=== PATIENT | female | born 1940 | race Caucasian/White ===

== ENCOUNTER 2017-03-15 14:57 | Emergency (ER) | payer MEDICARE ==
[2017-03-15 15:14] VITALS: BP 165/75
--- NOTE | 2017-03-15 17:19 | UC ---
Adam Holguin SooYoung, scribed for Oj Arcos MD on 03/15/17 at 1536 . Dizzy HPI HPI Summary: Pt is a 76 y/o F presenting to the [facility] [place] c/o confusion onset 0500. Associated sx: visual hallucinations; loss of coordination; weakness; diarrhea; mild pedal edema; intermittent MARTINI; cough; mild ear pain. Pt states she attempted to call her daughter but was unable to press the buttons on the phone, pt did reach her daughter at approx 1230. Pt also used her medical alert button at that time. At bedside, pt states visual hallucinations have resolved. Pt states she still "feels slow." Denies fever, CP, SOB, n/v, abd pain, urinary sx, rash. She states her extremity strength is at baseline. Pt also notes she had a fall recently, 1-2 weeks ago, where she hit her posterior head on her coffee table. Afterwards she experienced tinnitus which she states has resolved.. Pt had a similar episode of confusion early this week that mostly spontaneously resolved. She last saw her PCP for hives six days ago which was prior to the first episode of confusion. Pt had a known UTI on 02/24/17 and took her course of ABX. Denies DM, CHF, does not take a blood thinner. Pt took her daily meds today. - History Of Current Complaint Chief Complaint: UCDizziness Stated Complaint: CONFUSION Time Seen by Provider: 03/15/17 15:20 Hx Obtained From: Patient Onset/Duration: Sudden Onset, Lasting Hours - onset this AM at 0500, Still Present Severity Initially: Moderate Severity Currently: Mild Pain Intensity: 0 Pain Scale Used: 0-10 Numeric Associated Signs And Symptoms: Negative: Nausea, Vomiting, Chest Pain, SOB - Allergies/Home Medications Allergies/Adverse Reactions: Allergies Allergy/AdvReac Type Severity Reaction Status Date / Time Nitrofurantoin Allergy Hives Verified 03/15/17 16:24 PMH/Surg Hx/FS Hx/Imm Hx Previously Healthy: No - arthritis, fibromyalgia Endocrine History: Other Other Endocrine History: negative diabetes Cardiovascular History: Hypertension - Surgical History Surgical History: Yes Surgery Procedure, Year, and Place: [place] [facility] [facility] [place] [facility] [place] - Family History Known Family History: Positive: Diabetes Negative: Other - breast cancer - Social History Occupation: Retired Lives: Alone - senior housing Alcohol Use: None Substance Use Type: None Smoking Status (MU): Never Smoked Tobacco Review of Systems ENT: Ear Ache Respiratory: Cough Gastrointestinal: Diarrhea Musculoskeletal: Edema Neurological: Headache, Weakness, Other - confusion, visual hallucinations; loss of coordination All Other Systems Reviewed And Are Negative: Yes Physical Exam Triage Information Reviewed: Yes Appearance: Well-Appearing, No Pain Distress Vital Signs: Initial Vital Signs Temp 99.2 F 03/15/17 15:07 Pulse 59 03/15/17 15:07 Resp 17 03/15/17 15:07 BP 165/75 03/15/17 15:07 Pulse Ox 98 03/15/17 15:07 Vital Signs Reviewed: Yes Eyes: Positive: Other: - EOMI, JAMES ENT Exam: Other - cerumen in right ear Neck: Positive: Supple, Nontender Respiratory: Positive: Lungs clear, Normal breath sounds Cardiovascular: Positive: RRR, Other: - trace pedal edema bilaterally Abdomen Description: Positive: Nontender, Soft Bowel Sounds: Positive: Present Musculoskeletal: Positive: Strength Intact, ROM Intact, Edema @ - trace pedal edema bilaterally Neurological Exam: Other - confusion, not hallucinating Psychological: Positive: Normal Response To Family, Age Appropriate Behavior Skin Exam: Other - warm, skin color reflects adequate perfusion, dry Dizzy Course/Dx - Course Course Of Treatment: Pt is a 76 y/o F presenting to the [facility] [place] c/o confusion onset 0500. Associated sx: visual hallucinations; loss of coordination; weakness; diarrhea; mild pedal edema; intermittent MARTINI; cough; mild ear pain. Pt states she attempted to call her daughter but was unable to press the buttons on the phone, pt did reach her daughter at approx 1230. Pt also used her medical alert button at that time. At bedside, pt states visual hallucinations have resolved. Pt states she still "feels slow." Denies fever, CP, SOB, n/v, abd pain, urinary sx, rash. She states her extremity strength is at baseline. Pt also notes she had a fall recently, 1-2 weeks ago, where she hit her posterior head on her coffee table. Afterwards she experienced tinnitus which she states has resolved.. Pt had a similar episode of confusion early this week that mostly spontaneously resolved. She last saw her PCP for hives six days ago which was prior to the first episode of confusion. Pt had a known UTI on 02/24/17 and took her course of ABX. Denies DM, CHF, does not take a blood thinner. Pt took her daily meds today. Elevated BP but has current hypertension diagnosis. Medications reviewed. DISCUSSED WITH THE PATIENT TO GO TO THE EMERGENCY DEPARTMENT FOR FURTHER EVALUATION AND CARE. PATIENT AND DAUGHTER AGREE. DISCUSSED WITH DR DUVAL IN THE ED. - Differential Dx/Diagnosis Provider Diagnoses: 1. Blood pressure in poor control. CONFUSION. HALLUCINATIONS. ALTERED MENTAL STATE Discharge - Discharge Plan Condition: Stable Disposition: OTHER Discharge Disposition Comment: TO EMERGENCY DEPARTMENT Patient Education Materials: Altered Mental Status (ED) Referrals: Domenic Kelley MD [Primary Care Provider] - Additional Instructions: GO DIRECTLY TO THE EMERGENCY DEPARTMENT FOR FURTHER EVALUATION AND CARE FOR YOUR CONFUSION. The documentation as recorded by the Adam shi SooYoung accurately reflects the service I personally performed and the decisions made by me, Oj Arcos MD.
== END 2017-03-15 16:03 ==
LOC: UCEAST 14:57
DX: I10 Essential (primary) hypertension (principal); R41.0 Disorientation, unspecified; R44.3 Hallucinations, unspecified; R41.82 Altered mental status, unspecified
CPT/HCPCS: 81003; 87086; 99212; G0463

== ENCOUNTER 2017-03-15 16:21 | Inpatient (IN) | payer MEDICARE ==
--- NOTE | 2017-03-15 18:17 | RAD ---
INDICATION: Altered mental status. COMPARISON: There are no prior studies available for comparison. TECHNIQUE: Contiguous axial sections of the brain were obtained from the skull base to the vertex without contrast. FINDINGS: The ventricles, cisterns and sulci are enlarged consistent with age-related atrophy. There are small areas of decreased density in the subcortical and periventricular white matter suggestive of mild chronic small vessel ischemic changes. No other focal abnormality or mass effect is seen. There is no evidence for hemorrhage. No significant focal osseous abnormality is seen. The visualized portion of the paranasal sinuses and mastoid air cells appear clear. IMPRESSION: NO EVIDENCE FOR ACUTE INTRACRANIAL ABNORMALITY.
--- NOTE | 2017-03-15 18:20 | RAD ---
INDICATION: Altered mental status. COMPARISON: Comparison is made with a prior chest x-ray study from January 18, 2008. TECHNIQUE: A portable view of the chest was obtained. FINDINGS: Cardiac and mediastinal contours appear to be within normal limits. The lungs are underinflated. There is a small infiltrate at the right lung base. No pleural effusion is seen. IMPRESSION: LOW LUNG VOLUMES, SMALL RIGHT BASILAR INFILTRATE.
[2017-03-15 18:31] LABS: Urine Bacteria Absent (Absent); Urine Bilirubin Negative (Negative); Urine Glucose Negative (Negative); Urine Nitrite Negative (Negative)
[2017-03-15 19:06] LABS: Hematocrit 38 % (35-47); Hemoglobin 12.7 g/dl (12.0-16.0); Mean Corpuscular HGB Conc 34 g/dl (31-36); Mean Corpuscular Hemoglobin 29 pg (27-31); Mean Corpuscular Volume 86 fL (80-97); Mean Platelet Volume 8 um3 (7.4-10.4); Red Blood Count 4.39 10^6/ul (4.0-5.4); Red Cell Distribution Width 15 % (10.5-15)
[2017-03-15 19:12] LABS: Add Diff/Slide Review? Slide Review Added; Comments Flag Yes
[2017-03-15 19:16] LABS: Acetaminophen < 15 mcg/mL
[2017-03-15 19:18] LABS: ALT 35 U/L (7-52); Albumin 3.4 g/dL (3.2-5.2); Alkaline Phosphatase 105 U/L (34-104); BUN/Creatinine Ratio 12.9 (8-20); Blood Urea Nitrogen 11 mg/dL (6-24); CO2 Carbon Dioxide 29 mmol/L (22-32); Chloride 102 mmol/L (101-111); EGFR African American 83.6 (>60); Glucose 98 mg/dL (70-100); Magnesium 2.1 mg/dL (1.9-2.7); Sodium 139 mmol/L (133-145); Total Protein 6.4 g/dL (6.4-8.9); Troponin I 0.03 ng/mL (<0.04)
[2017-03-15 19:19] LABS: Anion Gap 8 mmol/L (2-11)
[2017-03-15] MEDS ORDERED: cefTRIAXone(*) 1 GM in NS 0.9% 50 ML* 50 ML IVPB ONE (19:30)
[2017-03-15 19:31] LABS: TSH (Thyroid Stimulating Horm) 3.65 mcIU/mL (0.34-5.60)
[2017-03-15] MEDS ORDERED: Azithromycin IV(*) 500 MG in NS 0.9% 250 ML* 250 ML IVPB ONE (19:31)
[2017-03-15] MEDS ORDERED: Acetaminophen TAB* 325 MG PO PRN (20:35)
[2017-03-15] MEDS ORDERED: Melatonin (NF) 3 MG TAB PO PRN (20:36)
[2017-03-15] MEDS ORDERED: hydrALAZINE IV* 20 MG/ML VIAL IV PRN (20:37)
[2017-03-15] MEDS ORDERED: Ondansetron INJ* 2 MG/ML VIAL IV PRN (20:37)
[2017-03-15] MEDS ORDERED: NS 0.9% 1000 ML* 1,000 ML IV SCH ×2 (20:45→22:00)
[2017-03-15] MEDS ORDERED: predniSONE TAB* 10 MG PO ONE (20:51)
[2017-03-15 21:27] LABS: C Reactive Protein 15.81 mg/L (< 5.00)
[2017-03-15 23:17] LABS: EGFR African American 80.3 (>60); EGFR Non-African American 62.5 (>60)
[2017-03-15] MEDS: Ropinirole TAB* 0.5 MG TAB PO PRN (23:23)
[2017-03-15] MEDS: Docusate CAP* 100 MG PO SCH (23:23)
[2017-03-15] MEDS: guaiFENesin ER TAB 600 MG PO SCH ×2 (23:23→23:29)
--- NOTE | 2017-03-15 23:39 | HP ---
CC: Dr. Kelley * HISTORY AND PHYSICAL: DATE OF ADMISSION: 03/15/17 PRIMARY CARE PROVIDER: Dr. Kelley. ATTENDING PHYSICIAN: Roge Felipe MD * (dictation provided by Rylie Pedro NP) CHIEF COMPLAINT: Confusion. HISTORY OF PRESENT ILLNESS: Ms. Ward is a 76-year-old female with a past medical history of hypothyroidism, hypertension, restless legs, and fibromyalgia who presents today to the hospital after two of episodes of confusion over the past week. Ms. Ward reports recent treatment for a UTI with nitrofurantoin. Early last week she developed hives which she thought were secondary to this medication. She was seen at her primary care physician' s office and this medication was discontinued. The following day, Thursday, , she called to tell her daughter that she had a fever. At that time, she had some confusion and was seeing things that were not there in her home including a mouse and pillows moving around on the couch. On Thursday, she called her doctor's office about the confusion and she was instructed to evaluated should this happen again. , the day of , she felt okay, but did not feel well enough to leave the home. On Thursday, she began taking cream for some hives that she had developed earlier in the week. Thursday she was feeling about the same and then this morning she suddenly felt worse and again very confused. He daughter camed to check on her and she was hallucinating and felt very weak. She continued to have a feeling of ringing in the ear. Her daughter and then was taken to convenient care where she was evaluated and then sent to the emergency department. In the emergency room, Ms. Ward had labs which showed no leukocytosis. Her CRP is 15.81. She has a mild hypokalemia with a potassium of 2.9. She is quite hypertensive. The first check here reads 244/79 and I am suspicious this is incorrect, though her blood pressure has been running repeatedly in 170s to 200s. She is asymptomatic here now and has had no confusion, but some short- term memory loss. Chest x-ray shows concern for a small right lower lobe infiltrate. PAST MEDICAL HISTORY: 1. Hypothyroidism. 2. Hypertension. 3. Restless leg syndrome. 4. Fibromyalgia. 5. Osteoarthritis. 6. Neuropathy of toes and fingers. 7. Cholecystectomy. MEDICATIONS: 1. Duloxetine 60 mg p.o. in the a.m. and 30 mg at noon. 2. Levothyroxine 88 mcg p.o. daily. 3. Propranolol 40 mg p.o. b.i.d. 4. Ropinirole 0.5 mg p.o. q.4 hours p.r.n. 5. Triamterene/hydrochlorothiazide 37.5/25 one cap p.o. daily. ALLERGIES: NITROFURANTOIN. FAMILY HISTORY: The patient reports her mother , had rheumatoid arthritis. Her dad , had lung cancer. SOCIAL HISTORY: The patient quit smoking, the patient was a smoker very briefly when she was in her 20s. She denies any alcohol or drug use. She states that her 3 children would be the healthcare proxy, but the primary person at the bedside alessandroight is Rocío. REVIEW OF SYSTEMS: Constitutional: Positive for fevers this week. No anorexia. Cardiac: No chest pain. No edema. Respiratory: Positive for chronic cough, unchanged. No hemoptysis, no shortness of breath. GI: No nausea, vomiting, diarrhea, or abdominal pain. : No gross hematuria or dysuria. Neuro: No focal weakness or sensory loss, but positive for confusion and generalized weakness. Eyes: No visual complaints. ENT: No dysphagia. Positive for some ringing in the ear, not resolved at this point. Musculoskeletal: No arthralgias or myalgias. Positive for some osteoarthritis. Skin: No rashes or lesions. Psych: No depression or anxiety. PHYSICAL EXAMINATION GENERAL: Ms. Ward is sitting in the bed with her daughter Antonella at the bedside. She is in no acute distress. VITAL SIGNS: Blood pressure 178/63, heart rate 54, O2 saturation 97% on room air, respiratory rate 17, and temperature 97.9. LUNGS: Clear to auscultation bilaterally with no accessory muscle use. They seem diminished in the bases. This is perhaps due to body habitus. HEART: S1 and S2. No murmur, rub, or gallop and regular. EXTREMITIES: No cyanosis and no edema. SKIN: Intact. NEUROLOGIC: She is alert, she is oriented x3. She is confused about some details over the past week and is corrected by her daughter. She moves all extremities equally. There is no facial asymmetry or focal weakness. Extraocular movements are intact. [id number] is intact. She has some difficulty with pain in her hips and legs and therefore, [id number] was not assessed. Her rapid alternating movements are intact. LABORATORY DATA: WBC 139, potassium 2.9, chloride 102, serum bicarbonate 29, BUN 11, creatinine 0.85, glucose 98, lactic acid 1.3. Troponin 0.03. CRP 15.81 , TSH 3.65. WBC 10.0, hemoglobin 12.7, hematocrit 38, platelet count 194,000. Tox screen shows negative acetaminophen. She has trace leukocyte esterase in her urine only. Chest x-ray shows concern for right lower lobe infiltrate. CT brain shows no evidence for acute intracranial abnormality. EKG shows sinus bradycardia with heart rate in the 50s and no evidence of ischemia. ASSESSMENT/PLAN: Ms. Ward is a 76-year-old female with the past medical history of hypertension, hypothyroidism, restless legs, and fibromyalgia who presents today to the hospital with a couple of episodes of confusion over the past week associated with intermittent fever and generally feeling unwell. She presented for observation in the hospital for the followin. Confusion: It is not quite clear what is driving the patient's intermittent confusion. She is afebrile here today. She does have a concern for a right lower lobe infiltrate, but she does not have any other clear evidence of pneumonia. Given the infiltrate on exam and confusion with reported fever at home, plan to treat for pneumonia. Lactic acid has been drawn. Blood cultures have been sent. Plan for gentle IV fluids overnight. She is not meeting sepsis criteria and I do not think she needs any aggressive IV fluids, especially in the setting of her elevated blood pressure. 2. Hypertension. It could be that she is having hypertensive encephalopathy at home which is driving her episodes of confusion. However, the patient states that she takes her blood pressure at home frequently and has not noted it to be elevated as it has been here today in the emergency room. Plan to continue her home medications. Her blood pressure is in the 170s systolically now. She will have hydralazine available p.r.n. and we can add on additional antihypertensive as needed based on the clinical course. 3. Restless legs. Continue Requip. 4. Fibromyalgia. Continue Cymbalta. 5. Hypothyroidism. Continue levothyroxine. Her TSH is appropriate. 6. Code status is full code. This was reviewed with the patient and her daughter at the bedside. 7. Approximately 60 minutes were spent on the admission of this patient, more than half the time was spent with the patient at the bedside reviewing the events leading up to this hospitalization, performing the physical examination, and reviewing my plan of care. RYLIE PEDRO NP [id number]/CPS #: [id number] ROBYN
[2017-03-16] MEDS: Levothyroxine TAB* 88 MCG TAB PO SCH (05:18)
[2017-03-16] MEDS: Ropinirole TAB* 0.5 MG TAB PO PRN ×3 (05:19→20:39)
[2017-03-16] MEDS: Heparin VIAL(*) 5000 UNITS/ML VIAL (FIVE THOUSAND) SUBCUT SCH ×3 (05:20→21:24)
[2017-03-16] MEDS: Omeprazole CAP* 20 MG PO SCH (05:23)
[2017-03-16 06:00] LABS: Hematocrit 37 % (35-47); Hemoglobin 12.2 g/dl (12.0-16.0); Mean Corpuscular HGB Conc 33 g/dl (31-36); Mean Corpuscular Hemoglobin 29 pg (27-31); Mean Corpuscular Volume 86 fL (80-97); Mean Platelet Volume 7 um3 (7.4-10.4); Red Blood Count 4.26 10^6/ul (4.0-5.4); Red Cell Distribution Width 15 % (10.5-15); White Blood Count 7.6 10^3/ul (3.5-10.8)
[2017-03-16 06:04] LABS: Add Diff/Slide Review? Slide Review Added; Comments Flag Yes
[2017-03-16 06:20] LABS: BUN/Creatinine Ratio 11.8 (8-20); EGFR African American 83.6 (>60); Potassium 3.1 mmol/L (3.5-5.0)
[2017-03-16] MEDS: Potassium Chloride LIQUID* 20 MEQ PACKET PO SCH (08:23)
[2017-03-16] MEDS: Triamterene/HCTZ 37.5-25 MG* CAP PO SCH (08:24)
[2017-03-16] MEDS: DULoxetine DR CAP* 30 MG CAP.DR PO SCH ×2 (08:24→12:22)
[2017-03-16] MEDS: guaiFENesin ER TAB 600 MG PO SCH (08:25)
[2017-03-16] MEDS: Propranolol TAB* 40 MG PO SCH ×2 (08:25→20:34)
[2017-03-16] MEDS: Docusate CAP* 100 MG PO SCH ×2 (08:25→20:38)
[2017-03-16] MEDS: Lisinopril TAB* 5 MG PO SCH (16:32)
--- NOTE | 2017-03-16 16:49 | PN ---
Subjective Date of Service: 03/16/17 Interval History: Patient states that she is feeling better with regards to her fever and hallucinations. Patient denies CP, SOB, N/V, Abdominal Pain, Diarrhea, Constipation, or other complaint. Patient complains of generalized leg pain which is similar to her pain with fibromyalgia and RLS. Patient states it usually resolves with requip. Patient states that she is SOB when walking to the bathroom, but that this is her baseline. Family History: Unchanged from Admission Social History: Unchanged from Admission Past Medical History: Unchanged from Admission Objective Active Medications: Acetaminophen (Tylenol Tab*) 650 mg PO Q6H PRN PRN Reason: FEVER/PAIN Docusate Sodium (Colace Cap*) 200 mg PO BID [facility] Last Admin: 03/16/17 08:25 Dose: 200 mg Duloxetine HCl (Cymbalta Cap*) 60 mg PO DAILY [facility] Last Admin: 03/16/17 08:24 Dose: 60 mg Duloxetine HCl (Cymbalta Cap*) 30 mg PO 1200 [facility] Last Admin: 03/16/17 12:22 Dose: 30 mg Guaifenesin (Mucinex*) 1,200 mg PO BID [facility] Last Admin: 03/16/17 08:25 Dose: Not Given Heparin Sodium (Porcine) (Heparin Vial(*)) 5,000 units SUBCUT Q8HR [facility] Last Admin: 03/16/17 14:37 Dose: 5,000 units Hydralazine HCl (Apresoline Iv*) 10 mg IV Q4H PRN PRN Reason: Systolic >170 Ceftriaxone Sodium 1,000 mg/ (Sodium Chloride) 50 mls @ 200 mls/hr IVPB Q24H [facility] Azithromycin 250 mg/ Sodium (Chloride) 250 mls @ 250 mls/hr IVPB Q24H [facility] Levothyroxine Sodium (Synthroid Tab*) 88 mcg PO 0600 [facility] Last Admin: 03/16/17 05:18 Dose: 88 mcg Lisinopril (Prinivil Tab*) 5 mg PO DAILY [facility] Last Admin: 03/16/17 16:32 Dose: 5 mg Melatonin (Melatonin (Nf)) 3 mg PO BEDTIME PRN; Protocol PRN Reason: Sleep Omeprazole (Prilosec Cap*) 20 mg PO DAILY@0600 [facility] Last Admin: 03/16/17 05:23 Dose: Not Given Ondansetron HCl (Zofran Inj*) 4 mg IV Q6H PRN PRN Reason: NAUSEA Potassium Chloride (Klor-Con Liquid*) 40 meq PO DAILY [facility] Last Admin: 03/16/17 08:23 Dose: 40 meq Propranolol HCl (Inderal Tab*) 40 mg PO BID [facility] Last Admin: 03/16/17 08:25 Dose: 40 mg Ropinirole HCl (Requip Tab*) 0.5 mg PO Q4H PRN PRN Reason: restless legs Last Admin: 03/16/17 08:24 Dose: 0.5 mg Triamterene/HCTZ (Dyazide Cap*) 1 cap PO DAILY [facility] Last Admin: 03/16/17 08:24 Dose: 1 cap Vital Signs 03/15/17 03/15/17 03/16/17 21:00 22:34 00:22 Temperature 99.2 F 97.8 F Pulse Rate 54 61 58 Respiratory 17 17 22 Rate Blood Pressure 178/63 175/59 158/55 (mmHg) O2 Sat by Pulse 97 97 99 Oximetry 03/16/17 03/16/17 03/16/17 00:27 03:50 07:27 Temperature 97.6 F 98.9 F Pulse Rate 63 60 Respiratory 22 18 16 Rate Blood Pressure 155/78 157/75 (mmHg) O2 Sat by Pulse 96 97 Oximetry 03/16/17 03/16/17 03/16/17 08:31 11:15 15:41 Temperature 97.8 F 98.3 F Pulse Rate 60 59 Respiratory 20 16 16 Rate Blood Pressure 170/62 164/71 (mmHg) O2 Sat by Pulse 98 97 Oximetry Oxygen Devices in Use Now: None Appearance: Patient is a 76yo female who appears stated age and is sitting in the bed in mild distress from the pain in her legs. Eyes: No Scleral Icterus, PERRLA Ears/Nose/Mouth/Throat: NL Teeth, Lips, Gums, Clear Oropharnyx, Mucous Membranes Moist Neck: NL Appearance and Movements; NL JVP, Trachea Midline Respiratory: Symmetrical Chest Expansion and Respiratory Effort, - - Slight crackles in B/L Lower Lobes. Cardiovascular: NL Sounds; No Murmurs; No JVD, RRR, No Edema Abdominal: NL Sounds; No Tenderness; No Distention, No Hepatosplenomegaly Lymphatic: No Cervical Adenopathy Extremities: No Edema, No Clubbing, Cyanosis, - - Pain with slight palpation over the left song. Skin: No Rash or Ulcers Neurological: Alert and Oriented x 3 Result Diagrams: 03/16/17 05:28 03/16/17 05:28 Microbiology and Other Data: Microbiology 03/15/17 22:30 Influenza Types A,B Antigen (LORIE) - Final Nasopharyngeal Specimen received for Influenza A/B Molecular testing Assess/Plan/Problems-Billing Assessment: Patient is a 76yo female with a PMH significant for HTN who presents with possible CAP and Hypertensive encephalopathy. Patient is improving on IV antibiotics and when in the normotensive range. - Patient Problems (1) CAP (community acquired pneumonia) Current Visit: Yes Status: Acute Code(s): J18.9 - PNEUMONIA, UNSPECIFIED ORGANISM SNOMED Code(s): 294449574 Comment: Presumptive community acquired pneumonia due to subjective fevers and infiltrate on CXR. Baseline SOB with walking at this point. Continue Ceftriaxone and Azithromycin Discontinue Mucinex per patient. (2) Hypertensive encephalopathy Current Visit: Yes Status: Acute Code(s): I67.4 - HYPERTENSIVE ENCEPHALOPATHY SNOMED Code(s): 55420455 Comment: Blood Pressure Markedly elevated when arrived in ED. Possible false reading but BP still significantly elevated throughout day. Hallucinations resolved with decrease in BP. Will begin Lisinopril Continue Inderal and Dyazide. Continue to monitor overnight. (3) Hypokalemia Current Visit: Yes Status: Acute Code(s): E87.6 - HYPOKALEMIA SNOMED Code( s): 75831611 Comment: Increased with supplementation, 3.1 most recently. Continue supplementation and recheck in AM. (4) RLS (restless legs syndrome) Current Visit: Yes Status: Acute Comment: Currently symptomatic, continue requip at home dose. (5) Fibromyalgia Current Visit: Yes Status: Acute Code(s): M79.7 - FIBROMYALGIA SNOMED Code (s): 070351633 Comment: Continue Cymbalta (6) Hypothyroidism Current Visit: Yes Status: Acute Code(s): E03.9 - HYPOTHYROIDISM, UNSPECIFIED SNOMED Code(s): 98279215 Comment: Continue Lexothyroxine. (7) Full code status Current Visit: Yes Status: Acute Code(s): Z78.9 - OTHER SPECIFIED HEALTH STATUS SNOMED Code(s): 955051940 (8) DVT prophylaxis Current Visit: Yes Status: Acute Code(s): UAB8853 - SNOMED Code(s): 039477368 Comment: Heparin SubQ Status and Disposition: Patient is admitted inpatient estimated LOS 1 more day.
[2017-03-16] MEDS ORDERED: cefTRIAXone VIAL(*) 1,000 MG in NS 0.9% 50 ML* 50 ML IVPB SCH (20:00)
[2017-03-16] MEDS ORDERED: Azithromycin IV(*) 250 MG in NS 0.9% 250 ML* 250 ML IVPB SCH (20:00)
[2017-03-16] MEDS ORDERED: Azithromycin IV(*) 500 MG in NS 0.9% 250 ML* 250 ML IVPB SCH (21:00)
[2017-03-17] MEDS: Omeprazole CAP* 20 MG PO SCH (05:13)
[2017-03-17] MEDS: Levothyroxine TAB* 88 MCG TAB PO SCH (05:13)
[2017-03-17] MEDS: Heparin VIAL(*) 5000 UNITS/ML VIAL (FIVE THOUSAND) SUBCUT SCH ×2 (05:14→14:39)
[2017-03-17 05:41] LABS: Hematocrit 36 % (35-47); Mean Corpuscular HGB Conc 33 g/dl (31-36); Mean Corpuscular Hemoglobin 29 pg (27-31); Mean Corpuscular Volume 87 fL (80-97); Mean Platelet Volume 8 um3 (7.4-10.4); Red Cell Distribution Width 15 % (10.5-15); White Blood Count 11.3 10^3/ul (3.5-10.8)
[2017-03-17 05:55] LABS: Add Diff/Slide Review? Slide Review Added; Comments Flag Yes
[2017-03-17 06:07] LABS: BUN/Creatinine Ratio 10.6 (8-20); Calcium 8.7 mg/dL (8.6-10.3); EGFR African American 83.6 (>60); Magnesium 2.1 mg/dL (1.9-2.7); Potassium 3.1 mmol/L (3.5-5.0)
[2017-03-17] MEDS: Potassium Chlor TAB* 20 MEQ TAB.ER PO SCH ×2 (09:43→11:46)
[2017-03-17] MEDS: Docusate CAP* 100 MG PO SCH (09:43)
[2017-03-17] MEDS: DULoxetine DR CAP* 30 MG CAP.DR PO SCH ×2 (09:44→11:46)
[2017-03-17] MEDS: Lisinopril TAB* 5 MG PO SCH (09:44)
[2017-03-17] MEDS: Triamterene/HCTZ 37.5-25 MG* CAP PO SCH (09:44)
[2017-03-17] MEDS: Propranolol TAB* 40 MG PO SCH (09:44)
[2017-03-17] MEDS: Potassium Chloride LIQUID* 20 MEQ PACKET PO SCH (09:45)
[2017-03-17] MEDS: Ropinirole TAB* 0.5 MG TAB PO PRN (10:28)
[2017-03-17 11:32] VITALS: BP 179/71
--- NOTE | 2017-03-17 14:11 | DCNOTE ---
Subjective Date of Service: 03/17/17 Interval History: Patient seen and examined at bedside. Patient reports confusion has resolved. BP up to 170s this PM but patient states she is anxious. Denies SOB that is new. States she's always short of breath. Family History: Unchanged from Admission Social History: Unchanged from Admission Past Medical History: Unchanged from Admission Objective Active Medications: Acetaminophen (Tylenol Tab*) 650 mg PO Q6H PRN Docusate Sodium (Colace Cap*) 200 mg PO BID [facility] Duloxetine HCl (Cymbalta Cap*) 60 mg PO DAILY [facility] Duloxetine HCl (Cymbalta Cap*) 30 mg PO 1200 [facility] Heparin Sodium (Porcine) (Heparin Vial(*)) 5,000 units SUBCUT Q8HR [facility] Hydralazine HCl (Apresoline Iv*) 10 mg IV Q4H PRN Ceftriaxone Sodium 1,000 mg/ (Sodium Chloride) 50 mls @ 200 mls/hr IVPB Q24H [facility] Azithromycin 250 mg/ Sodium (Chloride) 250 mls @ 250 mls/hr IVPB Q24H [facility] Levothyroxine Sodium (Synthroid Tab*) 88 mcg PO 0600 [facility] Lisinopril (Prinivil Tab*) 5 mg PO DAILY [facility] Melatonin (Melatonin (Nf)) 3 mg PO BEDTIME PRN; Protocol Omeprazole (Prilosec Cap*) 20 mg PO DAILY@0600 [facility] Ondansetron HCl (Zofran Inj*) 4 mg IV Q6H PRN Potassium Chloride (Klor-Con Liquid*) 40 meq PO DAILY [facility] Propranolol HCl (Inderal Tab*) 40 mg PO BID [facility] Ropinirole HCl (Requip Tab*) 0.5 mg PO Q4H PRN Triamterene/HCTZ (Dyazide Cap*) 1 cap PO DAILY [facility] Vital Signs Temp Pulse Resp BP Pulse Ox 99.2 F 56 16 179/71 99 03/17/17 12:05 03/17/17 12:05 03/17/17 12:05 03/17/17 12:05 03/17/17 12:05 Oxygen Devices in Use Now: None Appearance: sitting up in bed, NAD Eyes: No Scleral Icterus, PERRLA Ears/Nose/Mouth/Throat: NL Teeth, Lips, Gums Neck: NL Appearance and Movements; NL JVP Respiratory: Symmetrical Chest Expansion and Respiratory Effort, Clear to Auscultation Cardiovascular: NL Sounds; No Murmurs; No JVD, RRR Abdominal: NL Sounds; No Tenderness; No Distention Extremities: No Edema Skin: No Rash or Ulcers Neurological: Alert and Oriented x 3, NL Muscle Strength and Tone Lines/Tubes/Other Access: Clean, Dry and Intact Peripheral IV Nutrition: Taking PO's Result Diagrams: 03/17/17 04:22 03/17/17 04:22 Microbiology and Other Data: . Assess/Plan/Problems-Billing Patient is a 76yo female with a PMH significant for HTN who presents with possible CAP and Hypertensive encephalopathy. Patient is improving on IV antibiotics and when in the normotensive range. - Patient Problems (1) Hypertensive encephalopathy (2) CAP (community acquired pneumonia) (3) Hypokalemia (4) Hypothyroidism (5) RLS (restless legs syndrome) (6) Fibromyalgia (7) DVT prophylaxis (8) Full code status Status and Disposition: Patient stable to be discharged home. Please see full dictated discharge summary for detail regarding plan of care for above diagnoses.
--- NOTE | 2017-03-18 04:20 | DS ---
CC: Dr. Kelley * DISCHARGE SUMMARY: DATE OF ADMISSION: 03/15/17 DATE OF DISCHARGE: 03/17/17 ATTENDING PHYSICIAN: Irving Brown MD* (DICTATED BY DINO AVILA NP) PRIMARY CARE PROVIDER: Dr. Kelley. PRIMARY DIAGNOSES: 1. Hypertensive encephalopathy with confusion. 2. Community-acquired pneumonia. SECONDARY DIAGNOSES: 1. Fibromyalgia. 2. Restless leg syndrome. 3. Hypothyroidism. 4. Neuropathy. STUDIES WHILE IN THE HOSPITAL: Chest x-ray, 03/15/17: Low lung volume, small right basilar infiltrate. MEDICATIONS AT THE TIME OF DISCHARGE: New medications: 1. Zithromax 250 mg oral daily for 6 days. 2. Vantin 200 mg oral every 12 hours for 5 days. 3. Lisinopril 5 mg oral daily. 4. The patient is instructed to resume potassium 20 mEq oral twice daily. The following medications are medications the patient came in on: 1. Propranolol 40 mg oral twice daily. 2. Requip 0.5 mg oral every 4 hours as needed. 3. Cymbalta 60 mg oral daily. 4. Synthroid 88 mcg oral daily. 5. Dyazide 37.5/25 one capsule oral daily. 6. Cymbalta 30 mg oral at noon. HISTORY OF PRESENT ILLNESS AND HOSPITAL COURSE: Ms. Ward is a 76-year-old female with past medical history significant for hypothyroidism, hypertension, restless legs, and fibromyalgia, who presented to the emergency room on after 2 episodes of confusion in the past week. The patient recently had been treated with Macrobid for UTI and developed hives. Subsequently, she developed a fever. She was having confusion and hallucinations and was brought to the emergency room for further evaluation. In the emergency room, the patient did not have a leukocytosis, but had a blood pressure 244/79. Chest x- ray also was concerning for small right lower lobe infiltrate. The patient was admitted to the medical floor and placed on antibiotics for the pneumonia. It was felt that most likely her confusion was secondary to hypertensive encephalopathy. Blood pressure was monitored and given hydralazine as needed. Subsequently, the patient's blood pressure remained high and lisinopril was added to her preexisting medication regimen, which consisted of Dyazide and propranolol. With the addition of lisinopril, the patient's blood pressure was better controlled, although the patient does suffer from anxiety and I suspect the anxiety is playing into her elevated blood pressure. Rather than further increasing her lisinopril, I instructed the patient to keep a careful log of her blood pressure and followup with her primary care provider who, at that point, can decide whether or not her lisinopril needed to be increased. Upon presentation and during her hospitalization, the patient was hypokalemic. The patient states she had been on potassium supplements, which were stopped when she took the Macrobid. I have instructed the patient to restart the potassium supplementation. For her restless legs, Requip was continued and Cymbalta was continued for fibromyalgia. Synthroid was continued for hypothyroidism and TSH was within normal limits. On 03/17/17, vitals were as follows: Temperature 99.2, heart rate 56, respiratory rate 18, blood pressure 145/57, oxygen saturation 99% on room air. At this point, the patient was stable for discharge. DISCHARGE PLAN: The patient is discharged on a low sodium diet. The patient has been instructed to follow up with her primary care provider, Dr. Kelley, within 4 to 7 days. The patient has been instructed to take her blood pressure daily and notify her primary care provider if the systolic blood pressure is consistently greater than 160. In addition, the patient should return to the hospital if she experiences any worsening confusion or high fevers. I have reviewed all the instructions with the patient, she is agreeable with her discharge today and the plan. This is a summarized report of a complex medical history and hospital stay. For more details, please see the entire medical record. TIME SPENT: Time for this discharge was 50 minutes, and 25 minutes were spent with the patient discussing medications at discharge and followup instructions. CONDITION ON DISCHARGE: Stable. DINO AVILA NP [id number]/[facility] #: [id number] ROBYN
== END 2017-03-17 15:30 | disposition home or self-care (01) | DRG 77 ==
LOC: ED 16:21 → SSU 20:31
PROVIDERS: ADMIT Internal Medicine; ATTEND Internal Medicine
DX: I67.4 Hypertensive encephalopathy (principal); J18.8 Other pneumonia, unspecified organism; R41.0 Disorientation, unspecified; M79.7 Fibromyalgia; G25.81 Restless legs syndrome; E03.8 Other specified hypothyroidism; G62.9 Polyneuropathy, unspecified; F41.9 Anxiety disorder, unspecified; E87.6 Hypokalemia; M19.90 Unspecified osteoarthritis, unspecified site; Z79.899 Other long term (current) drug therapy; Z91.09 Other allergy status, other than to drugs and biological substances; Z82.61 Family history of arthritis; Z80.1 Family history of malignant neoplasm of trachea, bronchus and lung; Z87.891 Personal history of nicotine dependence
CPT/HCPCS: 36415; 70450; 71010; 80048; 80053; 80329; 81003; 81015; 82140; 82565; 83605; 83735; 84443; 84484; 84520; 85025; 85610; 85730; 86140; 87086; 87502; 87899; 93005; 94760; 99212; A9270-GY; G0463; G0480; J0360; J0456; J0696; J1644; J7512

== ENCOUNTER 2017-05-29 10:40 | Emergency (ER) | payer MEDICARE ==
--- NOTE | 2017-05-29 12:42 | RAD ---
INDICATION: Dizziness and low blood pressure COMPARISON: CT the brain March 15, 2017 TECHNIQUE: Contiguous axial sections of the brain were obtained from the skull base to the vertex without contrast. FINDINGS: The ventricles, cisterns and sulci are within normal limits. The chu-white matter differentiation is adequately maintained and there is no sulcal effacement. No significant focal abnormality or mass effect is present. There is no evidence for intracranial hemorrhage. No significant focal osseous abnormality is present. The visualized portion of the paranasal sinuses appear clear. The mastoid air cells are well aerated bilaterally. IMPRESSION: Normal CT of the brain.
--- NOTE | 2017-05-29 13:11 | RAD ---
INDICATION: Dizziness COMPARISON: Most recent comparison chest x-rays dated March 15, 2017 TECHNIQUE: Single AP portable view of the chest was obtained. FINDINGS: Image quality is compromised due to the relative inferiority of a portable chest x-ray. The heart and mediastinum exhibit normal size and contour. The lungs are grossly clear. There is no evidence of a large pleural effusion. Visualized bones are normal for the patient's age. IMPRESSION: No radiographic evidence for acute cardiopulmonary abnormality on this portable chest x-ray.
[2017-05-29 13:32] LABS: Urine Appearance Clear; Urine Blood Negative (Negative); Urine Color Yellow; Urine Ketones Negative (Negative); Urine Protein Negative (Negative); Urine Urobilinogen Negative (Negative)
[2017-05-29 13:37] LABS: ABS Basophils 0.1 10^3/ul (0-0.2); ABS Eosinophils 0.4 10^3/ul (0-0.6); ABS Lymphocytes 1.2 10^3/ul (1.0-4.8); ABS Monocytes 0.6 10^3/ul (0-0.8); ABS Neutrophils 6.2 10^3/ul (1.5-7.7); ABS Nucleated RBC 0 10^3/ul; Eosinophil % 4.7 % (0-6); Hematocrit 40 % (35-47); Hemoglobin 13.3 g/dl (12.0-16.0); Lymphocyte % 13.9 % (25-47); Mean Corpuscular HGB Conc 33 g/dl (31-36); Mean Corpuscular Hemoglobin 29 pg (27-31); Mean Corpuscular Volume 88 fL (80-97); Mean Platelet Volume 8 um3 (7.4-10.4); Nucleated Red Blood Cells % 0; Platelet Count 178 10^3/ul (150-450); Red Blood Count 4.55 10^6/ul (4.0-5.4); Red Cell Distribution Width 15 % (10.5-15); White Blood Count 8.5 10^3/ul (3.5-10.8)
[2017-05-29 13:46] LABS: INR 0.9 (0.77-1.02)
[2017-05-29 14:53] LABS: EGFR Non-African American 49.9 (>60)
[2017-05-29] MEDS ORDERED: NS 0.9% 1000 ML* 1,000 ML IV ONE ×2 (15:44)
[2017-05-29 17:15] VITALS: BP 147/51
--- NOTE | 2017-05-30 16:47 | ED ---
Karen Holguin Thomas, scribed for Nehemias Rivera MD on 05/29/17 at 1207 . Complex/Multi-Sys Presentation - HPI Summary HPI Summary: The patient is a 76 year old female brought in by her son with intermittent confusion and out of it since yesterday. The patient spoke over the phone with the son yesterday, and she was hallucinating that a cat and her grandson were in her house. The patients son notes that the patient has been missing her medication because she had extra pills where she keeps her medicine. The patient additionally complains of leg weakness and insomnia for the last few days. The patient denies chest pain and dysuria. - History Of Current Complaint Chief Complaint: EDDizziness Time Seen by Provider: 05/29/17 11:24 Hx Obtained From: Patient Onset/Duration: Still Present Timing: Intermittent, Lasting: Severity Currently: None Severity Initially: Moderate Associated Signs And Symptoms: Positive: Other - Confusion, hallucinatoins, leg weakness, insomnia; NEGATIVE: CP, dysuria - Allergies/Home Medications Allergies/Adverse Reactions: Allergies Allergy/AdvReac Type Severity Reaction Status Date / Time MS Nitrofurantoin Allergy Hives Verified 05/29/17 10:47 [Nitrofurantoin] Home Medications: Home Medications Fluticasone NASAL SPRAY 50MCG* [Flonase NASAL SPRAY 50MCG*] 2 spray BOTH NARES DAILY 05/29/17 [History Confirmed 05/29/17] Levothyroxine TAB* [Synthroid TAB*] 75 mcg PO DAILY 05/29/17 [History Confirmed 05/29/17] Oxybutynin TAB* [Ditropan TAB*] 2.5 mg PO BID PRN 05/29/17 [History Confirmed ] Potassium Chlor TAB* [Klor Con ER TAB*] 20 meq PO BID 05/29/17 [History Confirmed 05/29/17] PMH/Surg Hx/FS Hx/Imm Hx Endocrine/Hematology History: Reports: Hx Thyroid Disease Cardiovascular History: Reports: Hx Hypertension - CONTROLLED WITH MEDICATION Musculoskeletal History: Reports: Hx Arthritis - GENERALIZED Sensory History: Reports: Hx Contacts or Glasses - GLASSES Denies: Hx Hearing Aid Opthamlomology History: Reports: Hx Contacts or Glasses - GLASSES Neurological History: Reports: Hx Headaches - A FEW TIMES A WEEK Psychiatric History: Reports: Hx Anxiety, Hx Depression - Cancer History Hx Chemotherapy: No Hx Radiation Therapy: No - Surgical History Surgery Procedure, Year, and Place: 1 OVARY REMOVED 1979 [facility] [place]. CHOLECYSTECOMY 2008 [facility] [place]. UTI Hx Anesthesia Reactions: Yes - HARD TO WAKE UP - Immunization History Date of Influenza Vaccine: 12/2016 Infectious Disease History: No Infectious Disease History: Denies: History Other Infectious Disease, Traveled Outside the [place] in Last 30 Days - Family History Known Family History: Positive: Cardiac Disease, Hypertension, Diabetes - Social History Alcohol Use: None Substance Use Type: Reports: None Smoking Status (MU): Never Smoked Tobacco Review of Systems Negative: Chest Pain Negative: dysuria Neurological: Other - Insomnia, confusion Positive: Weakness - leg Positive: Other - hallucinations All Other Systems Reviewed And Are Negative: Yes Physical Exam - Summary Physical Exam Summary: VITAL SIGNS: Reviewed. GENERAL: Patient is an elderly female who is lying comfortable in the stretcher. Patient is not in any acute respiratory distress. She looks dehydrated. HEAD AND FACE: No signs of trauma. No ecchymosis, hematomas or skull depressions. No sinus tenderness. EYES: PERRLA, EOMI x 2, No injected conjunctiva, no nystagmus. EARS: Hearing grossly intact. Ear canals and tympanic membranes are within normal limits. MOUTH: Oropharynx within normal limits. Dry oral mucosa. NECK: Supple, trachea is midline, no adenopathy, no JVD, no carotid bruit, no c- spine tenderness, neck with full ROM. CHEST: Symmetric, no tenderness at palpation LUNGS: Clear to auscultation bilaterally. No wheezing or crackles. CVS: Regular rate and rhythm, S1 and S2 present, no murmurs or gallops appreciated. ABDOMEN: Soft, non-tender. No signs of distention. No rebound no guarding, and no masses palpated. Bowel sounds are normal. EXTREMITIES: FROM in all major joints, no edema, no cyanosis or clubbing. NEURO: Alert and oriented x 3. No acute neurological deficits. Speech is normal and follows commands. SKIN: Dry and warm Triage Information Reviewed: Yes Vital Signs On Initial Exam: Initial Vitals Temp Pulse Resp BP Pulse Ox 98.4 F 52 16 128/47 97 05/29/17 10:48 05/29/17 10:48 05/29/17 10:48 05/29/17 10:48 05/29/17 10:48 Vital Signs Reviewed: Yes Diagnostics - Vital Signs Vital Signs Temp Pulse Resp BP Pulse Ox 05/29/17 11:46 56 152/54 97 05/29/17 11:45 55 97 05/29/17 10:48 98.4 F 52 16 128/47 97 - Laboratory Result Diagrams: 05/29/17 13:25 05/29/17 13:25 Lab Statement: Any lab studies that have been ordered have been reviewed, and results considered in the medical decision making process. - Radiology CXR Xray Interpretation: No Acute Changes - No radiographic evidence for acute cardiopulmonary abnormality on this portable chest x-ray. Dr. Rivera has reviewed this report. Radiology Interpretation Completed By: Radiologist - CT CT Brain CT Interpretation: No Acute Changes - Normal CT of the brain. Dr. Rivera has reviewed this report. CT Interpretation Completed By: Radiologist - EKG 10:57 Cardiac Rate: Bradycardia EKG Rhythm: Sinus Bradycardia - at 57 BPM EKG Interpretation: No ST elevations. Complex Multi-Symp Course/Dx Assessment/Plan: The patient is a 76 year old female brought in by her son with intermittent confusion and out of it since yesterday. The patient spoke over the phone with the son yesterday, and she was hallucinating that a cat and her grandson were in her house. The patients son notes that the patient has been missing her medication because she had extra pills where she keeps her medicine. The patient additionally complains of leg weakness and insomnia for the last few days. The patient denies chest pain and dysuria. Test results are without significant abnormality. The patient seemed to be a little dehydrated, so she was given fluids and the patients symptoms resolved. CXR is negative. CT Brain shows normal CT of the brain. The patient ambulated without any difficulty and she is feeling better. She will be discharged home to follow up with primary care. The patient is hemodynamically stable and alert and oriented x3. - Diagnoses Provider Diagnoses: Weakness, Dehydration Discharge - Discharge Plan Condition: Stable Disposition: HOME Patient Education Materials: Dehydration (ED), Weakness (ED) Referrals: Domenic Kelley MD [Primary Care Provider] - 3 Days Additional Instructions: Follow up with your primary care provider in three days. Return to the emergency department for any new or worsening symptoms. The documentation as recorded by the Karen shi Thomas accurately reflects the service I personally performed and the decisions made by me, Nehemias Rivera MD.
== END 2017-05-29 17:14 | disposition home or self-care (01) ==
LOC: ED 10:40
DX: R53.1 Weakness (principal); E86.0 Dehydration; R41.0 Disorientation, unspecified; Z88.8 Allergy status to other drugs, medicaments and biological substances
CPT/HCPCS: 36415; 70450; 71045; 80053; 80320; 81003; 82550; 83735; 83880; 84443; 84484; 85025; 85610; 85730; 86140; 93005; 96360; 99283; G0480